=== PATIENT | female | born 1985 | race Caucasian/White ===

== ENCOUNTER 2016-08-03 16:26 | Emergency (ER) | payer OTHER ==
[2016-08-03 17:00] LABS: BILIRUBIN NEGATIVE (NEGATIVE); BLOOD NEGATIVE Ery/uL (NEGATIVE); CLARITY CLEAR (CLEAR); COLOR YELLOW (YELLOW); GLUCOSE (U) NORMAL (NORMAL); KETONE (U) NEGATIVE (NEGATIVE); LEUKOCYTES NEGATIVE Leu/uL (NEGATIVE); NITRITE NEGATIVE (NEGATIVE); PROTEIN NEGATIVE (NEGATIVE); UROBILINOGEN 0.2 mg/dL (0.2-1.0)
[2016-08-03 17:14] LABS: BASOPHIL 0.1 % (0-2); EOSINOPHIL 0.1 % (0-5); HCT 48.1 % (37.0-47.0); HGB 16.6 g/dl (12.5-16.0); LYMPHOCYTE 5.4 % (15-48); MCH 30.9 pg (25.0-31.0); MCHC 34.5 g/dL (32.0-36.0); MCV 89.6 fL (78.0-100.0); MONOCYTE 6.5 % (0-12); MPV 10.8 fL (6.0-9.5); NEUTROPHIL 87.9 % (41-80); PLT 195 K/uL (150-400); RBC 5.37 M/uL (4.20-5.40); RDW 13.3 % (11.5-14.0); WBC 10.5 K/uL (4.0-10.5)
[2016-08-03 17:33] LABS: CREATININE 0.9 mg/dL (0.5-1.0); POTASSIUM 4.1 mmol/L (3.5-5.1)
== END 2016-08-03 20:20 | disposition home or self-care (01) ==
LOC: FER 16:26
PROVIDERS: Emergency Medicine
DX: S39.012A Strain of muscle, fascia and tendon of lower back, initial encounter (principal); M54.6 Pain in thoracic spine
CPT/HCPCS: 36415; 72072; 72100; 80048; 81003; 85025; 87804; 87899; J1100; J1885